=== PATIENT | female | born 1980 | race Caucasian/White ===

== ENCOUNTER 2023-02-12 04:55 | Emergency (ER) | payer BC ==
[~2023-02-12] VITALS: Ht 170.2 cm; Wt 83.9 kg
[2023-02-12 05:27] VITALS: BP 142/89; PULSE 134; RESP 20; TEMP 98.3; O2SAT 95
[2023-02-12] MEDS ORDERED: NS 1000ML 1,000 ML IV STA ×2 (05:40→07:05)
[2023-02-12] MEDS ORDERED: MORPHINE SULFATE IV STA (05:40)
[2023-02-12] MEDS ORDERED: NS 1000ML 1,000 ML ONE ×2 (06:01→07:05)
[2023-02-12 06:02] LABS: +ADD MANUAL DIFF(NO CHRG) NO; BASOPHIL % 0.5 % (0.0-0.2); HEMATOCRIT(ML) 30.7 % (36.0-46.0); HEMOGLOBIN 10.2 g/dL (12.0-15.0); LYMPHOCYTES # 1.59 10^3/uL1 (1.0-4.8); LYMPHOCYTES % 39.4 % (24.0-44.0); MEAN CORP HGB 30.9 pg (26-34); MEAN CORP HGB CONCENTRATION 33.2 g/dL (33-36.5); MONOCYTES # 0.4 10^3/uL (0.3-0.8); MONOCYTES % 10.1 % (5.0-12.0); PLATELET COUNT 127 10^3/uL (150-400); RED CELL DISTRIBUTION WIDTH 16.7 % (11.5-14.5)
[2023-02-12] MEDS ORDERED: MORPHINE SULFATE ONE (06:02)
[2023-02-12 06:06] LABS: BILIRUBIN,URINE NEGATIVE (NEGATIVE); LEUKOCYTE ESTERASE ,URINE 1+ (NEGATIVE); NITRATE,URINE NEGATIVE (NEGATIVE); UROBILINOGEN,URINE 0.2 E.U./dL (0.2)
[2023-02-12 06:16] VITALS: BP 153/93; PULSE 127; RESP 20; TEMP 98.3; O2SAT 95
[2023-02-12 06:17] LABS: APPEARANCE,URINE CLOUDY; UA COLOR YELLOW
[2023-02-12 06:25] LABS: ALBUMIN(ML) 3.4 g/dL (3.4-5.0); ALBUMIN/GLOBULIN RATIO 0.971; ANION GAP 14.9; BUN/CREATININE RATIO 15.38 (10.0-20.0); CALCIUM 9.1 mg/dL (8.4-10.5); CARBON DIOXIDE 23.6 mmol/L (20.0-32); CREATININE SERUM 0.65 mg/dL (0.59-1.40); POTASSIUM 3.5 mmol/L (3.6-5.2); PROTHROMBIN PROTIME 10.3 SEC (9.7-11.6)
[2023-02-12 06:58] VITALS: BP 159/93; PULSE 124; RESP 20; TEMP 98.3; O2SAT 95
[2023-02-12] MEDS ORDERED: LOPRESSER IVP STA (07:09)
[2023-02-12] MEDS ORDERED: LOPRESSER ONE (07:11)
[2023-02-12 07:16] VITALS: BP 147/90; PULSE 107; RESP 20; TEMP 98.3; O2SAT 95
[2023-02-12] MEDS ORDERED: OFIRMEV 1000 MG/100 ML IV SCH (08:30)
[2023-02-12 08:44] VITALS: BP 165/96; PULSE 120; RESP 20; TEMP 98.3; O2SAT 95
[2023-02-12] MEDS ORDERED: OFIRMEV 1000 MG/100 ML 100 ML IV ONE (09:30)
== END 2023-02-12 09:49 | disposition home or self-care (01) ==
LOC: ER 04:55
DX: K59.00 Constipation, unspecified (principal); R10.9 Unspecified abdominal pain; R09.1 Pleurisy; E86.0 Dehydration; Z85.9 Personal history of malignant neoplasm, unspecified; Z90.49 Acquired absence of other specified parts of digestive tract; Z90.89 Acquired absence of other organs; Z98.51 Tubal ligation status; Z88.8 Allergy status to other drugs, medicaments and biological substances
CPT/HCPCS: 99285; 71275; 96374; 96361; 96375; 87086; 74177; 80053; 85025; 36415; 83605; 81001; 83690; 85610; 85730; 93005; J7030 ×2; J0131; J3490; Q9965 ×2; 36600; 82803; 84484